=== PATIENT | female | born 1990 | race American Indian/Alaskan Native ===

== ENCOUNTER 2016-07-03 20:41 | Emergency (ER) | payer SELFPAY ==
[2016-07-03 21:54] LABS: Bilirubin,Urine NEG (Negative); Blood,Urine NEG (Negative); Ketones,Urine TR mg/dL (Negative); Leukocyte Esterase,Urine MOD (Negative); Mucus,Urine 1+ /HPF; Nitrite,Urine NEG (Negative); Protein,Urine <15 mg/dL mg/dL (Negative); Urobilinogen,Urine < 2.0 mg/dL (<2.0)
[2016-07-03 22:01] LABS: Basophils % (Auto) 0.3 % (0.0-1.8); Eosinophils % (Auto) 2.3 % (0.0-4.3); Hematocrit 32.6 % (30.3-42.9); Hemoglobin 10.8 gm/dl (10.1-14.3); Mean Corpuscular HGB Conc 33 % (30-34); Mean Corpuscular Hemoglobin 29 pg (28-32); Mean Corpuscular Volume 88 fl (79-97); Platelet Count 198 K/mm3 (140-440); Red Blood Count 3.71 M/mm3 (3.65-5.03); Red Cell Distribution Width 13.9 % (13.2-15.2); White Blood Count 8.6 K/mm3 (4.5-11.0)
[2016-07-03 22:12] LABS: Alanine Aminotransferase 8 units/L (7-56); Albumin/Globulin Ratio 1.4 %; Alkaline Phosphatase 47 units/L (35-129); Anion Gap 20 mmol/L; BUN/Creatinine Ratio 33.33; Bilirubin,Total < 0.2 mg/dL (0.1-1.2); Blood Urea Nitrogen 10 mg/dL (7-17); Calcium 8.7 mg/dL (8.4-10.2); Carbon Dioxide 19 mmol/L (22-30); Chloride 101.7 mmol/L (98-107); Glucose 103 mg/dL (65-100); Lipase 17 units/L (13-60); Potassium 3.9 mmol/L (3.6-5.0); Sodium 137 mmol/L (137-145); Total Protein 6.8 g/dL (6.3-8.2)
[2016-07-04 02:04] VITALS: BP 109/69
--- NOTE | 2016-07-04 02:21 | Emergency Department Report ---
HPI - General Chief Complaint: Abdominal Pain Time Seen by Provider: 07/04/16 02:07 - HPI HPI: This is a 26-year-old Afro-[place] female presents to the emergency department with a 2 day history of some lower abdominal and/or pelvic discomfort. She denies any nausea, vomiting, fever, back pain, dysuria, vaginal bleeding or discharge. She is not taken anything for symptoms prior to presentation. She has a history of endometriosis. When asked if she could be , she says "not to my knowledge." Her last menstrual period was sometime last month but it is usually irregular secondary to her endometriosis. No recent travel or sick contacts at home. She does not have a primary care doctor or NUCLEAR MONITORING TECHNICIAN. ED Past Medical Hx - Past Medical History Previous Medical History?: No - Surgical History Past Surgical History?: No - Social History Smoking Status: Current Every Day Smoker Substance Use Type: Alcohol - Medications Home Medications: Home Medications Medication Instructions Recorded Confirmed Last Taken Type Nitrofurantoin [place]/M-Cryst 100 mg PO Q12HR #14 capsule 07/04/16 Unknown Rx [Macrobid CAP] Pnv95/Ferrous Fumarate/FA 1 each PO QDAY #30 tablet 07/04/16 Unknown Rx [ Vitamin Tablet] ED Review of Systems ROS: Stated complaint: ABD PAIN/VAG BLEEDING Other details as noted in HPI Comment: All other systems reviewed and negative Constitutional: denies: chills, fever Eyes: denies: eye pain, eye discharge, vision change ENT: denies: ear pain, throat pain Respiratory: denies: cough, shortness of breath, wheezing Cardiovascular: denies: chest pain, palpitations Gastrointestinal: abdominal pain. denies: nausea, vomiting Genitourinary: denies: urgency, dysuria, discharge Musculoskeletal: denies: back pain, joint swelling, arthralgia Skin: denies: rash, lesions Neurological: denies: headache, weakness, paresthesias Physical Exam - Physical Exam Vital Signs: Vital Signs 07/03/16 07/03/16 07/04/16 20:45 21:00 02:00 Temperature 99.1 F 99.1 F 98.5 F Pulse Rate 94 H 94 H 99 H Respiratory 20 18 16 Rate Blood Pressure 114/62 Blood Pressure 114/62 114/62 109/69 [Right] O2 Sat by Pulse 100 100 100 Oximetry Physical Exam: GENERAL: The patient is well-developed well-nourished. HEENT: Normocephalic. Atraumatic. Extraocular motions are intact. Patient has moist mucous membranes. Pupils equal reactive to light bilaterally. NECK: Supple. Trachea is midline. CHEST/LUNGS: Clear to auscultation. There is no respiratory distress noted. HEART/CARDIOVASCULAR: Regular. There is no tachycardia. There is no gallop rub or murmur. ABDOMEN: Abdomen is soft. Unable to reproduce patient's lower abdominal cramping pain to palpation. No guarding rebound tenderness. Patient has normal bowel sounds. There is no abdominal distention. SKIN: There is no rash. There is no edema. There is no diaphoresis. NEURO: The patient is awake, alert, and oriented. The patient is cooperative. The patient has no focal neurologic deficits. The patient has normal speech. MUSCULOSKELETAL: There is no tenderness or deformity. There is no limitation range of motion. There is no evidence of acute injury. ED Course Vital Signs 07/03/16 07/03/16 07/04/16 20:45 21:00 02:00 Temperature 99.1 F 99.1 F 98.5 F Pulse Rate 94 H 94 H 99 H Respiratory 20 18 16 Rate Blood Pressure 114/62 Blood Pressure 114/62 114/62 109/69 [Right] O2 Sat by Pulse 100 100 100 Oximetry ED Medical Decision Making - Lab Data Result diagrams: 07/03/16 21:33 07/03/16 21:33 - Radiology Data Radiology results: report reviewed Transvaginal/ ultrasound shows a live intrauterine at about 12 weeks. - Medical Decision Making 26-year-old female presents to the emergency department with the complaint of some lower abdominal cramping pain for the past few days. Labs show a positive urine test. Urinalysis also shows a mild urinary tract infection. The rest the patient's labs are mostly unremarkable. She was sent for a transvaginal/ ultrasound that came back with the result of a live injury return at 12 weeks. Patient's vital signs stable throughout her ED course. Patient will be discharged home with referrals for NUCLEAR MONITORING TECHNICIAN, vitamins, and some Macrobid for a mild urinary tract infection. She'll return to the ER with any worsening of her symptoms or any acute distress. - Differential Diagnosis , miscarriage, fibroids, UTI Critical Care Time: No Critical care attestation.: If time is entered above; I have spent that time in minutes in the direct care of this critically ill patient, excluding procedure time. ED Disposition Clinical Impression: Qualifiers: Weeks of gestation: 12 weeks Qualified Code(s): Z3A.12 - 12 weeks gestation of UTI (urinary tract infection) Qualifiers: Urinary tract infection type: acute cystitis Hematuria presence: with hematuria Qualified Code(s): N30.01 - Acute cystitis with hematuria Disposition: DISCHARGED TO HOME OR SELFCARE Is pt being admited?: No Condition: Stable Instructions: (ED), Urinary Tract Infection in Women (ED) Additional Instructions: Please follow-up with a primary care doctor but more importantly an NUCLEAR MONITORING TECHNICIAN in the near future. I have given you referrals of local NUCLEAR MONITORING TECHNICIAN physicians. I have started to on vitamins. You can take Tylenol every 4 hours, using weight-based dosing, as needed for discomfort. Other than Tylenol, only take medications that are prescribed eye physician. Return to the ER with any vaginal bleeding, sharp abdominal pains, or any acute distress. Prescriptions: Nitrofurantoin [place]/M-Cryst [Macrobid CAP] 100 mg PO Q12HR #14 capsule Pnv95/Ferrous Fumarate/FA [ Vitamin Tablet] 1 each PO QDAY #30 tablet Referrals: HAROLDO KAN MD [Primary Care Provider] - 3-5 Days JOSE BEE MD [Staff Physician] - 3-5 Days HUMBLE TAVAREZ MD [Staff Physician] - 3-5 Days Time of Disposition: 05:16
--- NOTE | 2016-07-04 03:30 | Ultrasound Report ---
FINAL REPORT PROCEDURE: US OB TRANSVAGINAL TECHNIQUE: Real-time transabdominal and transvaginal sonography of the uterus, placenta, amniotic fluid, adnexa, and fetus was performed with image documentation. Measurements were obtained to determine age/size. M-mode Doppler was used to document heartbeat. CPT 51837 and 01089 HISTORY: Abd pain, preg COMPARISON: No prior studies are available for comparison. FINDINGS: CRL: 54 mm, which corresponds to a gestational age of: 12 weeks, 1 days. Yolk Sac: Normal. Embryonic Cardiac Activity: 166 beats per minute Gestational Sac: A small subchorionic bleed measures 23 millimeters Amniotic fluid: Normal. Cervix: Normal. Right Ovary: Normal. Left Ovary: Normal. Estimated delivery date: 01/15/2017 Uterus and adnexa: Normal. IMPRESSION: 1. Single live intrauterine gestation at approximately 12 weeks, 1 days. 2. EDC by US 01/15/2017 3. Complete anatomic survey at 18-20 weeks suggested.
--- NOTE | 2016-07-04 03:31 | Ultrasound Report ---
FINAL REPORT PROCEDURE: US OB transabdominal TECHNIQUE: Real-time transabdominal and transvaginal sonography of the uterus, placenta, amniotic fluid, adnexa, and fetus was performed with image documentation. Measurements were obtained to determine age/size. M-mode Doppler was used to document heartbeat. CPT 88012 and 32394 HISTORY: Abd pain, preg COMPARISON: No prior studies are available for comparison. FINDINGS: CRL: 54 mm, which corresponds to a gestational age of: 12 weeks, 1 days. Yolk Sac: Normal. Embryonic Cardiac Activity: 166 beats per minute Gestational Sac: A small subchorionic bleed measures 23 millimeters Amniotic fluid: Normal. Cervix: Normal. Right Ovary: Normal. Left Ovary: Normal. Estimated delivery date: 01/15/2017 Uterus and adnexa: Normal. IMPRESSION: 1. Single live intrauterine gestation at approximately 12 weeks, 1 days. 2. EDC by US 01/15/2017 3. Complete anatomic survey at 18-20 weeks suggested. PROCEDURE: TECHNIQUE: HISTORY: COMPARISON: FINDINGS: IMPRESSION:
[2016-07-04] MEDS ORDERED: MACROBID ONE (05:20)
[2016-07-04] MEDS: MACROBID PO ONE (05:33)
== END 2016-07-04 05:35 | disposition home or self-care (01) ==
LOC: ED 20:41
DX: O23.41 Unspecified infection of urinary tract in pregnancy, first trimester (principal); O99.331 Smoking (tobacco) complicating pregnancy, first trimester; Z3A.12 12 weeks gestation of pregnancy
CPT/HCPCS: 36415; 76801; 76817; 80053; 81001; 81025; 83690; 84702; 85025; 99284

== ENCOUNTER 2016-12-27 05:14 | Outpatient (CLI) | payer MEDICAID ==
[2016-12-27] MEDS ORDERED: LACTATED RINGERS 1,000 ML IV ONE (05:36)
[2016-12-27 05:39] VITALS: BP 118/64
[2016-12-27 06:39] LABS: Bilirubin,Urine NEG (Negative); Blood,Urine NEG (Negative); Ketones,Urine NEG (Negative); Leukocyte Esterase,Urine NEG (Negative); Mucus,Urine FEW /HPF; Nitrite,Urine NEG (Negative); Protein,Urine <15 mg/dL mg/dL (Negative)
[2016-12-27] MEDS ORDERED: VISTARIL PO ONE (06:54)
== END 2016-12-27 07:41 | disposition home or self-care (01) ==
LOC: TRG 05:14
PROVIDERS: ATTEND Obstetrics & Gynecology
DX: O47.1 False labor at or after 37 completed weeks of gestation (principal); Z87.891 Personal history of nicotine dependence; Z3A.37 37 weeks gestation of pregnancy
CPT/HCPCS: 81001; Q0177

== ENCOUNTER 2017-01-04 14:23 | Outpatient (CLI) | payer MEDICAID ==
[2017-01-04] MEDS ORDERED: LACTATED RINGERS 500 ML IV ONE (16:00)
[2017-01-04 16:37] LABS: Bilirubin,Urine NEG (Negative); Blood,Urine NEG (Negative); Ketones,Urine TR mg/dL (Negative); Leukocyte Esterase,Urine NEG (Negative); Mucus,Urine 1+ /HPF; Nitrite,Urine NEG (Negative); Protein,Urine <15 mg/dL mg/dL (Negative)
[2017-01-04] MEDS ORDERED: TYLENOL PO ONE (18:15)
--- NOTE | 2017-01-05 09:33 | Ultrasound Report ---
ULTRASOUND OB LIMITED History: well being Technique: Transabdominal ultrasound with Doppler interrogation. Gestation: Single Position: Cephalic Amniotic Fluid: Normal SHANNA = 13.9 cm Heart Rate: 120 BPM
--- NOTE | 2017-01-05 09:33 | Ultrasound Report ---
ULTRASOUND BIOPHYSICAL PROFILE: History: well being Technique: Transabdominal ultrasound with Doppler interrogation. 2 - breathing movements 2 - movements 2 - posture and tone 2 - Qualitative amniotic fluid volume 8 - TOTAL SCORE OF POSSIBLE 8 Heart Rate (bpm) 123
[2017-01-07 01:48] VITALS: BP 112/79
== END 2017-01-04 18:25 | disposition home or self-care (01) ==
LOC: TRG 14:23
PROVIDERS: ATTEND Obstetrics & Gynecology
DX: O47.1 False labor at or after 37 completed weeks of gestation (principal); Z3A.38 38 weeks gestation of pregnancy
CPT/HCPCS: 59025; 76815; 76819; 81001